=== PATIENT | female | born 1935 | race Asian ===

== ENCOUNTER 2023-05-20 11:13 | Inpatient (IN) | payer MEDICARE, OTHER ==
[~2023-05-20] VITALS: Ht 152.4 cm; Wt 52.0 kg
--- NOTE | 2023-05-20 12:28 | NUR ---
Patient arrived to the unit to room 344 from [facility] via EMS at 1200. Patient alert and oriented, Lungs CTA, Bowel sounds active , pulses present, Patient c/o severe pain at left hip, affected area place on a pillow and ice pack put in place. Family oriented to the room and use of call skaggs. VSS.
[2023-05-20] MEDS ORDERED: TIROSINT50 MC1 PO (12:34)
[2023-05-20] MEDS ORDERED: CALCIUM 600-D 61 TAB PO (12:35)
[2023-05-20] MEDS ORDERED: VITAMIN D250 MCG PO (12:36)
[2023-05-20] MEDS ORDERED: RT ALBUTER2.5 MG/0.5 IH (12:37)
[2023-05-20 12:41] VITALS: BP 126/55; PULSE 85; TEMP 97.5
[2023-05-20] MEDS ORDERED: MEDROL4 MG (12:41)
[2023-05-20] MEDS ORDERED: VESICARE 5MG5 MG PO (12:41)
[2023-05-20] MEDS ORDERED: VITAMIN C500 MG PO (12:42)
[2023-05-20] MEDS ORDERED: SPIRIVA RE2.5 MCG/Ac IH (12:42)
[2023-05-20] MEDS ORDERED: NATURAL E400 IU PO (12:43)
[2023-05-20 13:00] VITALS: BP_SYST 140
[2023-05-20 13:11] LABS: SQUAMOUS EPITHELIAL 0-2 /hpf (0-10); URINE APPEARANCE Clear (CLEAR/HAZY); URINE BACTERIA None Seen /hpf (NONE SEEN); URINE BLOOD TRACE-INTACT (NEGATIVE); URINE COLOR Yellow (YELLOW); URINE GLUCOSE Negative (NEGATIVE); URINE KETONE Negative (NEGATIVE); URINE NITRATE Negative (NEGATIVE); URINE PROTEIN(semi-quant) 1+ (NEGATIVE); URINE RBC 0-2 /hpf (0-2); URINE UROBILINOGEN 0.2 E.U/dL (0.2-1.0)
[2023-05-20 13:15] LABS: HEMATOCRIT 42.7 % (37.0-47.0); MEAN CELL VOLUME 95 fl (80.0-100.0); MEAN CORPUSCULAR HEMOGLOBIN 34 pg (27-31); MEAN CORPUSCULAR HGB CONC 35 g/dl (33.0-37.0); MEAN PLATELET VOLUME 10.6 fl (7.4-10.4); PLATELET COUNT 189 K/mm3 (130-400); RED BLOOD COUNT 4.48 M/mm3 (4.10-5.30); REDCELL DISTRIBUTION WIDTH-CV 11.6 % (11.5-14.5)
[2023-05-20 13:22] LABS: INR 1.1 (0.8-3.0)
[2023-05-20 13:31] LABS: BILIRUBIN,TOTAL 0.9 mg/dL (0.2-1.2); CREATININE, serum 0.77 mg/dL (0.57-1.11); POTASSIUM 4.3 mmol/L (3.5-4.5); TOTAL PROTEIN 7.1 gm/dL (6.2-8.1)
[2023-05-20 13:40] LABS: LYMPHOCYTE 7 % (20.0-51.0); NEUTROPHILS 81 % (42.0-75.2); PLATELET ESTIMATE NORMAL (NORMAL)
[2023-05-20 13:41] LABS: COLLECTION METHOD CATHETER
[2023-05-20 15:26] VITALS: BP 140/59; PULSE 65; TEMP 97.5
[2023-05-20 17:00] VITALS: BP_SYST 140
--- NOTE | 2023-05-20 17:00 | NUR ---
[id number]- DR. VELASCO FROM [facility] CALLED REQUESTING TRANSFER TO [facility] FOR PATIENT DUE TO FEMUR FX. STATED HE SPOKE WITH OUR ORTHO DIRECTOR OF CORPORATE SALES WHO SAID THEY COULD NOT SEE PATIENT IN , BUT WOULD SEE PATIENT AT [facility]. CALL TRANSFERRED TO DR. Angelina VARGAS WHO ACCEPTS PATIENT FOR INPATIENT STATUS.
--- NOTE | 2023-05-20 18:06 | NUR ---
Zofran administered for n/v. Family at bedside.
[2023-05-20 19:45] VITALS: BP 141/61; PULSE 65; TEMP 97.8
--- NOTE | 2023-05-20 20:00 | NUR ---
PATIENT IS RESTING UP IN BED, A&O. VSS. 02 @ 1L PER NC WITH SATS IN LOWER 90'S. C/O MILD DISCOMFORT IN LLE WITH [address] TRA[address] GIVING HER RELIEF. GAVE TYLENOL, SEE MAR. PATIENT REFUSED SUPPER TRAY. IV FLUIDS INFUSING VIA PUMP INTO LEFT AC IV. TONG TO DD WITH MOD AMOUNTS OF ZAK URINE NOTED. HEAD TO TOE ASSESSMENT COMPLETE. CALL LIGHT IN REACH. BED ALARM ON.
[2023-05-20 21:11] VITALS: BP_SYST 141
[2023-05-21] VITALS (17 sets, daily range): BP systolic 119–149; BP diastolic 51–98; PULSE 61–85; TEMP 97.4–98.6
--- NOTE | 2023-05-21 08:14 | NUR ---
PATIENT ALERT AND ORIENTED X4. VSS. PATIENT HERE FOR LEFT FEMUR FRACTURE. BUCKS TRACTION TO LLE. TONG TO DD WITH YELLOW OUTPUT. IV TO LEFT AC WITH FLUIDS RUNNING AT 75ML/HOUR. PATIENT ON RA, REPORTS PAIN 3/10, DENIES NEED FOR PAIN MEDICATION. PATIENT RESTING IN BED, CALL LIGHT IN REACH, BED ALARM ON.
[2023-05-21] MEDS ORDERED: MEDROL 4MG DOSPA4 MG PO (08:25)
[2023-05-21] MEDS ORDERED: FOSAMAX 70MG TA70 MG PO (08:27)
--- NOTE | 2023-05-21 08:58 | NUR ---
Digital Director met with Patient and daughters Minoo and Brittanie at bedside to conduct Care Managment Assessment and discuss discharge planning. Patient lives with her daughter Minoo in [place], [place] and is estatblished with Dr. Liu for PCP. Patient is requesting a list of PCPs in [place], [place] to establish new PCP. Patient is covered by [facility] and [employer] for insurance. Patient requests discharge medications through [facility] on [place], [place]. Patient denies utilizing O2 prior to admission and endorses the use of a walker starting on 05-10-23. Minoo states that Pyhlicia has been in and out of the ER 3 times recently. Minoo and Brittanie are Patient's DPOAHC. SW discussed the potential need for [id number] when discharged. Minoo immediatly states that she refuses to send Patient to a nursing facility and that she would like a referral to [facility] IPR. SW briefed that in the case that Patient is not accepted to IPR, there are other IPR facilities and SB facilities available in the local area. SW provided [email or web address] list of SNF and IPR servicing providers. Minoo agreed to review.
--- NOTE | 2023-05-21 09:50 | NUR ---
Initial visit; Patient and two family members thanked Line Person for looking in on P[facility]co, offering encouragement and wishing her well.
--- NOTE | 2023-05-21 13:52 | NUR ---
PREOP FLUIDS HANGING. PATIENT'S FAMILY ESCORTED DOWNSTAIRS FOR PATIENT. PATIENT OFF OF FLOOR FOR SURGERY.
--- NOTE | 2023-05-21 20:00 | NUR ---
PATIENT IS RESTING UP IN BED, A&O. VSS. 02 @ 2L PER NC WITH SATS IN MID 90'S. REPORTS MILD PAIN IN LLE AT REST. GAVE TYLENOL, SEE MAR. PATIENT STILL REPORTING DECREASED APPETITE, NO NAUSEA. IV FLUIDS INFUSING VIA PUMP INTO LEFT AC IV. TONG TO DD WITH MOD AMOUNTS OF YELLOW URINE NOTED. HEAD TO TOE ASSESSMENT COMPLETE. CALL LIGHT IN REACH. BED ALARM ON.
[2023-05-22] VITALS (9 sets, daily range): BP systolic 99–142; BP diastolic 48–72; PULSE 9–94; TEMP 97.4–98.5
[2023-05-22 08:00] LABS: HEMATOCRIT 33.8 % (37.0-47.0); HEMOGLOBIN 11.7 g/dl (12.5-16.0)
--- NOTE | 2023-05-22 08:00 | NUR ---
A&O x4. IV LR 5%Dextrose 50 ml/hr. Noted slight edema to left arm above IV site- primary nurse notified. O2 at 2L per nasal cannula. SCDs and ALINA hose to BLE. Benjamin to DD in place draining cloudy, yellow urine. Ecchymosis to coccyx- not blanchable. Placed Allevyn Life foam dressing per primary nurse request. Patient stated pain is 3 at L hip/femur area, ice applied.
--- NOTE | 2023-05-22 08:20 | NUR ---
PT RESTING IN BD WITH PAIN 4/10 IN LEFT HIP. ECCYMOSIS TO BUTTOCK AND MEPOLEX APPLIED. EDEMA IN LFT UPPER ARM FROM IV. PLAN TO START NEW LINE. ICE TO L HIP. PT EDUCATED TO REPOSITION FREQUENTLY. FAMILY AT BEDSIDE. WILL CONTINUE TO MONITOR.
--- NOTE | 2023-05-22 08:24 | NUR ---
DR MCKENNA NOTIFIED OF HGB TREND 15 TO 11.7 THIS AM. NO NEW ORDERS.
[2023-05-22 08:54] LABS: BASO % 0.3 % (0.0-2.0); EOS # 0.2 K/mm3 (0.0-0.7); EOS % 2.1 % (0.0-4.0); GRAN # 6.5 K/mm3 (1.4-6.5); GRAN % 72.5 % (42.2-75.2); HEMOGLOBIN 11.7 g/dl (12.5-16.0); LYMPH # 1.5 K/mm3 (1.2-3.4); LYMPH % 16.4 % (20.0-51.0); MEAN CELL VOLUME 98 fl (80.0-100.0); MEAN CORPUSCULAR HEMOGLOBIN 33 pg (27-31); MEAN CORPUSCULAR HGB CONC 34 g/dl (33.0-37.0); MEAN PLATELET VOLUME 10.7 fl (7.4-10.4); MONO # 0.7 K/mm3 (0.1-0.6); MONO % 8.1 % (1.7-9.3); PLATELET COUNT 136 K/mm3 (130-400); RED BLOOD COUNT 3.54 M/mm3 (4.10-5.30); REDCELL DISTRIBUTION WIDTH-CV 11.6 % (11.5-14.5)
[2023-05-22 08:55] LABS: CALCIUM 8.1 mg/dL (8.4-10.2); CREATININE, serum 0.69 mg/dL (0.57-1.11); POTASSIUM 4.1 mmol/L (3.5-4.5)
[2023-05-22 08:57] LABS: HEMATOCRIT 34.7 % (37.0-47.0)
--- NOTE | 2023-05-22 13:56 | NUR ---
ALYSA AVILA CALLED TO NOTIFY OF URINARY OUTPUT OF 150 DURING THIS SHIFT. NEW ORDERS PLACED BY [place].
[2023-05-22 19:23] LABS: HEMOGLOBIN 11.2 g/dl (12.5-16.0)
--- NOTE | 2023-05-22 20:00 | NUR ---
PATIENT IS RESTING UP IN BED, A&O. VSS. 02 @ 2.5L PER NC WITH SATS IN MID 90'S. REPORTS MILD PAIN IN LLE AT REST. GAVE SCHEDULED TYLENOL AND PRN ROXICODONE, SEE MAR. PATIENT UP TO BEDSIDE COMMODE TO VOID. PATIENT STILL REPORTING DECREASED APPETITE, NO NAUSEA. IV FLUIDS INFUSING VIA PUMP INTO LEFT AC IV. HS MEDS GIVEN. HEAD TO TOE ASSESSMENT COMPLETE. CALL LIGHT IN REACH. BED ALARM ON.
[2023-05-23 00:42] VITALS: BP_SYST 142
[2023-05-23 04:12] VITALS: BP 101/51; PULSE 82; TEMP 98.4
[2023-05-23 04:15] VITALS: BP_SYST 101
[2023-05-23 06:52] LABS: HEMOGLOBIN 10.2 g/dl (12.5-16.0)
[2023-05-23 06:54] LABS: HEMATOCRIT 30.5 % (37.0-47.0)
[2023-05-23 07:18] VITALS: BP 124/59; PULSE 84; TEMP 98
--- NOTE | 2023-05-23 07:22 | NUR ---
Patient resting in bed, alert and oriented. Denies pain, shortness of breath or nausea. Nasal cannula in place. Bed in lowest position with call light within reach, bed alarm on, fall precautions in place.
--- NOTE | 2023-05-23 08:15 | NUR ---
A&O x4. IV to right hand 0.9% sodium chloride at 100ml/h. O2 at 2L via nasal cannula- sat 96%. SCDs to BLE. Removed ALINA hose. Allevyn Life foam dressing to coccyx CDI. Gauze to incision sites left hip x3 CDI. Patient denies pain, but states she has some numbness at L hip/leg area- noted edema and placed ICE. Ambulated to toilet with steady gait and SBA. Voided 75ml. Frequent coughing during breakfast and stated "I'm having trouble swallowing." Primary nurse instructed pt to take small bites with sips of water.
[2023-05-23 10:15] VITALS: BP_SYST 124
[2023-05-23 11:10] VITALS: BP 102/54; PULSE 82; TEMP 97.9
[2023-05-23] MEDS ORDERED: ASPIRIN 32325 MG/TA1 PO (11:33)
[2023-05-23] MEDS ORDERED: TYLENOL 500MG500 MG PO (11:34)
[2023-05-23] MEDS ORDERED: ROXICODONE 55 MG/TAB PO (11:34)
[2023-05-23] MEDS ORDERED: DUO-KAPS1 CAP PO (11:35)
--- NOTE | 2023-05-23 12:01 | NUR ---
Patient transferred to [facility]. See discharge orders. Family aware, in room when transferring.
== END 2023-05-23 12:01 | DRG 480 ==
LOC: SURG 11:13
PROVIDERS: Orthopaedic Surgery Sports Medicine; Physician Assistant; ADMIT Internal Medicine
PROC: 0QS706Z Reposition Left Upper Femur with Intramedullary Internal Fixation Device, Open Approach (ICD-10-PCS; principal; 2023-05-21 14:30)
DX: S72.22XA Displaced subtrochanteric fracture of left femur, initial encounter for closed fracture (principal); J96.01 Acute respiratory failure with hypoxia; E03.9 Hypothyroidism, unspecified; J44.9 Chronic obstructive pulmonary disease, unspecified; R73.03 Prediabetes; W18.39XA Other fall on same level, initial encounter; R32 Unspecified urinary incontinence; D72.829 Elevated white blood cell count, unspecified; M50.322 Other cervical disc degeneration at C5-C6 level; M50.323 Other cervical disc degeneration at C6-C7 level; M19.90 Unspecified osteoarthritis, unspecified site; T38.0X5A Adverse effect of glucocorticoids and synthetic analogues, initial encounter; D64.9 Anemia, unspecified; T45.8X5A Adverse effect of other primarily systemic and hematological agents, initial encounter; M81.0 Age-related osteoporosis without current pathological fracture; G89.29 Other chronic pain; Y93.89 Activity, other specified; Z90.49 Acquired absence of other specified parts of digestive tract; Y92.89 Other specified places as the place of occurrence of the external cause; Z79.890 Hormone replacement therapy; Z79.899 Other long term (current) drug therapy; Z91.040 Latex allergy status
CPT/HCPCS: A9270; A9284; C1713; C1769; C9113; J0665; J0690; J2250; J2371; J2405; J2704; J3010; J7030; J7121